=== PATIENT | female | born 1980 | race American Indian/Alaskan Native ===

== ENCOUNTER 2016-08-22 08:10 | Emergency (ER) | payer SELFPAY ==
[2016-08-22] MEDS ORDERED: NORCO 5/325 PO ONE (10:10)
[2016-08-22] MEDS ORDERED: TORADOL IM ONE (10:10)
--- NOTE | 2016-08-22 11:03 | XRay Report ---
Lumbar spine 3 views: History: Fall. Findings: Normal height of vertebral bodies and intervertebral disc. Normal articular surfaces. No fracture. No paravertebral mass. Impression: No bony or articular abnormality lumbar spine.
--- NOTE | 2016-08-22 11:04 | XRay Report ---
Thoracic spine 3 views: History: Fall, pain. Findings: Normal height of vertebral bodies. Minimal decrease in height of intervertebral disc bases. Sclerotic articular surface with osteophyte suggestive of degenerative changes. No fracture. No paravertebral mass. Impression: Degenerative dorsal spine.
[2016-08-22 11:43] VITALS: BP 149/86
--- NOTE | 2016-08-22 11:50 | Emergency Department Report ---
Entered by DANAY GIFFORD, acting as scribe for KIT CLAY PA. ED Fall HPI - General Chief Complaint: Fall Stated Complaint: LWR MIDDLE BACK PAIN Source: patient Mode of arrival: Ambulatory - History of Present Illness Initial Comments: 36 year old female presents to the ED for evaluation of mid and low back pain secondary to fall last night between 19:00 and 20:00. She reports she slipped and fell after losing her balance; states she did not hit her head or experience LOC. She reports feeling dizzy prior to fall but denies dizziness in the ED. Patient describes her back pain as "aching" and "throbbing" and rates her discomfort as a 9/10. She denies previous similar episodes, recent illness, numbness or tingling to extremities, and bowel or urinary incontinence. -: Last night Time: 19:00 Fall From: standing When Fall Occurred: other (greater than 12 horus [employer]) Fall Witnessed: yes, by bystander Place Fall Occurred: work ([employer]) Loss of Consciousness: none Prolonged Down Time?: no Symptoms Prior to Fall: lightheadedness, dizziness Location: back (mid and low back) Severity scale (0 -10): 9 Quality: aching, other (throbbing) Context: tripped/slipped Associated Symptoms: denies: denies (bowel or bladder incontinence, hitting head , LOC), headache, neck pain, numbness, weakness, chest paint, shortness of breath, abdominal pain, unable to walk, lightheaded - Related Data Home Medications Medication Instructions Recorded Confirmed Last Taken metFORMIN [Glucophage] 500 mg PO BID 08/28/15 02/13/16 Unknown Previous Rx's Medication Instructions Recorded Last Taken Type Hydroxyzine HCl 1 tab PO TID #60 tablet 02/13/16 Unknown Rx Lisinopril [Zestril TAB] 20 mg PO QDAY #30 tablet 02/13/16 Unknown Rx oxyCODONE /ACETAMINOPHEN [Percocet 1 tab PO Q6HR PRN #14 tablet 02/13/16 Unknown Rx 5/325 mg] Naproxen [Naprosyn] 500 mg PO BID #30 tablet 08/22/16 Unknown Rx methOCARBAMOL [Robaxin TAB] 500 mg PO BID #20 tab 08/22/16 Unknown Rx Allergies Allergy/AdvReac Type Severity Reaction Status Date / Time tramadol Allergy Vomiting Verified 08/22/16 08:28 ED Review of Systems Comment: All other systems reviewed and negative Respiratory: denies: shortness of breath Cardiovascular: denies: chest pain Gastrointestinal: denies: nausea, vomiting Musculoskeletal: back pain (mid and low back pain) Neurological: denies: weakness, numbness, paresthesias, abnormal gait, other ( LOC) ED Past Medical Hx - Past Medical History Hx Hypertension: Yes Hx Congestive Heart Failure: No Hx Diabetes: Yes Hx Asthma: No (bronchitis) Hx COPD: No Additional medical history: anemia, high chol. MORBID OBESITY - Surgical History Past Surgical History?: No - Social History Smoking Status: Current Every Day Smoker Substance Use Type: Alcohol - Medications Home Medications: Home Medications Medication Instructions Recorded Confirmed Last Taken Type metFORMIN [Glucophage] 500 mg PO BID 08/28/15 02/13/16 Unknown History Hydroxyzine HCl 1 tab PO TID #60 tablet 02/13/16 Unknown Rx Lisinopril [Zestril TAB] 20 mg PO QDAY #30 tablet 02/13/16 Unknown Rx oxyCODONE /ACETAMINOPHEN [Percocet 1 tab PO Q6HR PRN #14 tablet 02/13/16 Unknown Rx 5/325 mg] Naproxen [Naprosyn] 500 mg PO BID #30 tablet 08/22/16 Unknown Rx methOCARBAMOL [Robaxin TAB] 500 mg PO BID #20 tab 08/22/16 Unknown Rx ED Physical Exam - General Limitations: No Limitations General appearance: other (The patient is well-developed and well-nourished. Patient is in NAD. ) - Head Head exam: Present: atraumatic, normocephalic - Eye Eye exam: Present: PERRL, EOMI - Neck Neck exam: Present: full ROM (supple). Absent: tenderness (vertebral or paraspinal), lymphadenopathy - Respiratory Respiratory exam: Present: normal lung sounds bilaterally. Absent: respiratory distress - Cardiovascular Cardiovascular Exam: Present: regular rate, normal rhythm, normal heart sounds. Absent: systolic murmur, diastolic murmur, rubs, gallop - Back Exam Back exam: Present: paraspinal tenderness (thoracic spine and lumbar spine), vertebral tenderness (thoracic spine and lumbar spine) - Expanded Back Exam Expanded Back exam: Positive Straight Leg Raise: Right, Negative Straight Leg Raising: Left - Neurological Exam Neurological exam: Present: alert, oriented X3, CN II-XII intact, normal gait, other (Symmetrical strength and sensation. GCS score of 15.) - Psychiatric Psychiatric exam: Present: normal affect, normal mood ED Course Vital Signs 08/22/16 08/22/16 08:22 10:40 Temperature 97.5 F L Pulse Rate 96 H Respiratory 19 22 Rate Blood Pressure 181/115 O2 Sat by Pulse 96 Oximetry ED Medical Decision Making - Radiology Data Radiology results: report reviewed, image reviewed Thoracic spine 3 views: History: Fall, pain. Findings: Normal height of vertebral bodies. Minimal decrease in height of intervertebral disc bases. Sclerotic articular surface with osteophyte suggestive of degenerative changes. No fracture. No paravertebral mass. Impression: Degenerative dorsal spine. Lumbar spine 3 views: History: Fall. Findings: Normal height of vertebral bodies and intervertebral disc. Normal articular surfaces. No fracture. No paravertebral mass. Impression: No bony or articular abnormality lumbar spine. - Medical Decision Making 36 year old female presents to the ED for evaluation of mid and low back pain secondary to fall last night. X-ray of thoracic and lumbar spine reveal no acute fractures or dislocations. The patient will be provided with a referral for orthopedic. Patient was given Oceana and Toradol and reported symptomatic relief. Patient is in no acute distress at this time. She will be discharged home and is encouraged to follow up with a primary care provider. She will be sent home on Robaxin and naproxen and is encouraged to return to the emergency room for any worsening symptoms. ED Disposition Clinical Impression: Fall Qualifiers: Encounter type: initial encounter Qualified Code(s): W19.XXXA - Unspecified fall, initial encounter Back pain Qualifiers: Back pain location: thoracic back pain Chronicity: acute Back pain laterality: bilateral Qualified Code(s): M54.6 - Pain in thoracic spine Low back pain Qualifiers: Chronicity: acute Back pain laterality: bilateral Sciatica presence: without sciatica Qualified Code(s): M54.5 - Low back pain Disposition: DISCHARGED TO HOME OR SELFCARE Is pt being admited?: No Does the pt Need Aspirin: No Condition: Stable Instructions: Back Pain (ED) Additional Instructions: Follow-up with primary care provider. Return to the emergency department if symptoms worsen. Prescriptions: methOCARBAMOL [Robaxin TAB] 500 mg PO BID #20 tab Naproxen [Naprosyn] 500 mg PO BID #30 tablet Referrals: PRIMARY MD JAMISON [Primary Care Provider] - 3-5 Days MARILOU HOOD MD [Staff Physician] - 3-5 Days [facility] [Outside] - 3-5 Days Forms: Work/School Release Form(ED), Accompanied Note Time of Disposition: 11:46 This documentation as recorded by the BALTA evans REBEKAH,accurately reflects the service I personally performed and the decisions made by OBED earl NATASHA, PA.
== END 2016-08-22 11:56 | disposition home or self-care (01) ==
LOC: ED 08:10
DX: M54.6 Pain in thoracic spine (principal); M54.5 Low back pain; W01.0XXA Fall on same level from slipping, tripping and stumbling without subsequent striking against object, initial encounter; Y93.9 Activity, unspecified; Y92.9 Unspecified place or not applicable; Y99.9 Unspecified external cause status
CPT/HCPCS: 72070; 72100; 96372; 99283; J1885

== ENCOUNTER 2018-01-17 04:32 | Emergency (ER) | payer OTHER ==
[2018-01-17] MEDS ORDERED: XYLOCAINE 2% INFILTRATI ONE (09:34)
--- NOTE | 2018-01-17 09:35 | Emergency Department Report ---
ED Female HPI - General Chief complaint: Urogenital-Female Stated complaint: VAGINAL CYST Time Seen by Provider: 01/17/18 09:05 Source: patient Mode of arrival: Ambulatory Limitations: No Limitations, Language Barrier - History of Present Illness Initial comments: Services a 37-year-old -[place]is[place] female who presents with abscess to the vaginal region for 3 days. Past medical history of abscesses in multiple locations, HTN, and Prediabetes. Patient reports pain as 10 out of 10 on pain scale and worse while sitting. Pain is sharp and constant. Pain increased last night and caused difficulty sitting. She is currently taking NSAID's with no improvement of symptoms. She have not been able to follow up with [employer] due to insurance issues at employment. MD Complaint: other (abscess to vagina) Onset/Timin -: days(s) Location: labia (left side) Radiation: non-radiating Severity: severe Severity scale (0 -10): 10 Quality: sharp, aching Consistency: constant Improves with: none Worsens with: movement, other (sitting) Are you Now?: No Associated Symptoms: denies other symptoms - Related Data Sexually active: Yes Home Medications Medication Instructions Recorded Confirmed Last Taken metFORMIN [Glucophage] 500 mg PO BID 08/28/15 02/13/16 Unknown Previous Rx's Medication Instructions Recorded Last Taken Type Hydroxyzine HCl 1 tab PO TID #60 tablet 02/13/16 Unknown Rx Lisinopril [Zestril TAB] 20 mg PO QDAY #30 tablet 02/13/16 Unknown Rx oxyCODONE /ACETAMINOPHEN [Percocet 1 tab PO Q6HR PRN #14 tablet 02/13/16 Unknown Rx 5/325 mg] Naproxen [Naprosyn] 500 mg PO BID #30 tablet 08/22/16 Unknown Rx methOCARBAMOL [Robaxin TAB] 500 mg PO BID #20 tab 08/22/16 Unknown Rx Cephalexin [Keflex] 500 mg PO BID #14 capsule 04/04/17 Unknown Rx Naproxen 500 mg PO BID PRN #30 tablet 04/04/17 Unknown Rx Dicyclomine [Bentyl] 10 mg PO QID PRN #20 capsule 04/11/17 Unknown Rx Famotidine [Pepcid] 20 mg PO QDAY #30 tablet 04/11/17 Unknown Rx Ondansetron [Zofran Odt] 4 mg PO Q8HR PRN #20 tab.rapdis 04/11/17 Unknown Rx Sucralfate [Carafate] 1 gm PO Q6HR #120 tablet 04/11/17 Unknown Rx Allergies Allergy/AdvReac Type Severity Reaction Status Date / Time tramadol Allergy Vomiting Verified 08/22/16 08:28 ED Review of Systems ROS: Stated complaint: VAGINAL CYST Other details as noted in HPI Constitutional: denies: chills, fever Respiratory: denies: cough, shortness of breath, wheezing Cardiovascular: denies: chest pain, palpitations Gastrointestinal: denies: abdominal pain, nausea, diarrhea Genitourinary: denies: urgency, dysuria, discharge Skin: lesions (abscess to left labia). denies: rash Neurological: denies: headache, weakness, paresthesias Psychiatric: denies: anxiety, depression ED Past Medical Hx - Past Medical History Previous Medical History?: Yes Hx Hypertension: Yes Hx Congestive Heart Failure: No Hx Diabetes: Yes (borderline) Hx Asthma: (bronchitis) Hx COPD: No Additional medical history: anemia, high chol. MORBID OBESITY - Surgical History Past Surgical History?: No - Social History Smoking Status: Current Every Day Smoker Substance Use Type: Alcohol, Marijuana - Medications Home Medications: Home Medications Medication Instructions Recorded Confirmed Last Taken Type metFORMIN [Glucophage] 500 mg PO BID 08/28/15 02/13/16 Unknown History Hydroxyzine HCl 1 tab PO TID #60 tablet 02/13/16 Unknown Rx Lisinopril [Zestril TAB] 20 mg PO QDAY #30 tablet 02/13/16 Unknown Rx oxyCODONE /ACETAMINOPHEN [Percocet 1 tab PO Q6HR PRN #14 tablet 02/13/16 Unknown Rx 5/325 mg] Naproxen [Naprosyn] 500 mg PO BID #30 tablet 08/22/16 Unknown Rx methOCARBAMOL [Robaxin TAB] 500 mg PO BID #20 tab 08/22/16 Unknown Rx Cephalexin [Keflex] 500 mg PO BID #14 capsule 04/04/17 Unknown Rx Naproxen 500 mg PO BID PRN #30 tablet 04/04/17 Unknown Rx Dicyclomine [Bentyl] 10 mg PO QID PRN #20 capsule 04/11/17 Unknown Rx Famotidine [Pepcid] 20 mg PO QDAY #30 tablet 04/11/17 Unknown Rx Ondansetron [Zofran Odt] 4 mg PO Q8HR PRN #20 tab.rapdis 04/11/17 Unknown Rx Sucralfate [Carafate] 1 gm PO Q6HR #120 tablet 04/11/17 Unknown Rx ED Physical Exam - General Limitations: No Limitations, Language Barrier General appearance: alert, in no apparent distress, obese (mobidly obese) - Respiratory Respiratory exam: Present: normal lung sounds bilaterally. Absent: respiratory distress - Cardiovascular Cardiovascular Exam: Present: regular rate, normal rhythm. Absent: systolic murmur, diastolic murmur, rubs, gallop - GI/Abdominal GI/Abdominal exam: Present: soft, normal bowel sounds - External exam: Present: swelling, lesions (2 cm fluctuance nodule to left labia majora, no active bleeding,). Absent: erythema, lacerations, ecchymosis, bleeding ED Course Vital Signs 01/17/18 04:43 Temperature 99.1 F Pulse Rate 103 H Respiratory 15 Rate Blood Pressure 186/121 O2 Sat by Pulse 99 Oximetry ED Medical Decision Making - Medical Decision Making This is a 37 y.o. female that presents with a painful abscess to left labia majora. History of prior abscess, HTN, and prediabetes. Patient is stable and examined by me. Physical assessment of 2 cm fluctuance nodule to left labia majora. No acute signs of distress noted. Blood pressure elevated on arrival. I &D refer to note. Discussed plan to start bactrim DS and tylenol with codeine with patient. Educated patient on follow up plan to have packing removed and wound reassessed in 2-3 days. Patient agrees to ED plan of care. Discharged home and follow up with PCP in 2-3 days. Critical care attestation.: If time is entered above; I have spent that time in minutes in the direct care of this critically ill patient, excluding procedure time. ED Disposition Condition: Stable Referrals: PRIMARY CARE, [Primary Care Provider] - 3-5 Days
--- NOTE | 2018-01-17 11:37 | Emergency Department Report ---
Abscess Boil HPI - HPI Chief Complaint: Urogenital-Female Stated Complaint: VAGINAL CYST Time Seen by Provider: 01/17/18 09:05 Duration: 3 Days Location: Perianal Severity: Moderate History: Yes Previous History, No Fever, No Pain, No Purulent Drainage, No Numbness, No Foreign Body, No Insect Bite HPI: Services a 37-year-old -[place] female who presents with abscess to the vaginal region for 3 days. Past medical history of abscesses in multiple locations, HTN, and Prediabetes. Patient reports pain as 10 out of 10 on pain scale and worse while sitting. Pain is sharp and constant. Pain increased last night and caused difficulty sitting. She is currently taking NSAID's with no improvement of symptoms. She have not been able to follow up with [employer] due to insurance issues at employment. Home Medications: Home Medications Medication Instructions Recorded Confirmed Last Taken metFORMIN [Glucophage] 500 mg PO BID 08/28/15 02/13/16 Unknown Previous Rx's Medication Instructions Recorded Last Taken Type Hydroxyzine HCl 1 tab PO TID #60 tablet 02/13/16 Unknown Rx Lisinopril [Zestril TAB] 20 mg PO QDAY #30 tablet 02/13/16 Unknown Rx oxyCODONE /ACETAMINOPHEN [Percocet 1 tab PO Q6HR PRN #14 tablet 02/13/16 Unknown Rx 5/325 mg] Naproxen [Naprosyn] 500 mg PO BID #30 tablet 08/22/16 Unknown Rx methOCARBAMOL [Robaxin TAB] 500 mg PO BID #20 tab 08/22/16 Unknown Rx Cephalexin [Keflex] 500 mg PO BID #14 capsule 04/04/17 Unknown Rx Naproxen 500 mg PO BID PRN #30 tablet 04/04/17 Unknown Rx Dicyclomine [Bentyl] 10 mg PO QID PRN #20 capsule 04/11/17 Unknown Rx Famotidine [Pepcid] 20 mg PO QDAY #30 tablet 04/11/17 Unknown Rx Ondansetron [Zofran Odt] 4 mg PO Q8HR PRN #20 tab.rapdis 04/11/17 Unknown Rx Sucralfate [Carafate] 1 gm PO Q6HR #120 tablet 04/11/17 Unknown Rx Ibuprofen [Motrin 800 MG tab] 800 mg PO Q8HR PRN #20 tablet 01/17/18 Unknown Rx Lisinopril [Zestril] 20 mg PO DAILY #30 tablet 01/17/18 Unknown Rx Sulfamethoxazole/Trimethoprim 1 each PO BID #20 tablet 01/17/18 Unknown Rx [Bactrim DS TAB] Allergies/Adverse Reactions: Allergies Allergy/AdvReac Type Severity Reaction Status Date / Time tramadol Allergy Vomiting Verified 08/22/16 08:28 ED Review of Systems ROS: Stated complaint: VAGINAL CYST Other details as noted in HPI Constitutional: denies: chills, fever Respiratory: denies: cough, shortness of breath, wheezing Cardiovascular: denies: chest pain, palpitations Gastrointestinal: denies: abdominal pain, nausea, diarrhea Genitourinary: denies: urgency, dysuria, discharge Skin: lesions (abscess to left labia). denies: rash Neurological: denies: headache, weakness, paresthesias Psychiatric: denies: anxiety, depression ED Past Medical Hx - Past Medical History Previous Medical History?: Yes Hx Hypertension: Yes Hx Congestive Heart Failure: No Hx Diabetes: Yes (borderline) Hx Asthma: (bronchitis) Hx COPD: No Additional medical history: anemia, high chol. MORBID OBESITY - Surgical History Past Surgical History?: No - Social History Smoking Status: Current Every Day Smoker Substance Use Type: Alcohol, Marijuana - Medications Home Medications: Home Medications Medication Instructions Recorded Confirmed Last Taken Type metFORMIN [Glucophage] 500 mg PO BID 08/28/15 02/13/16 Unknown History Hydroxyzine HCl 1 tab PO TID #60 tablet 02/13/16 Unknown Rx Lisinopril [Zestril TAB] 20 mg PO QDAY #30 tablet 02/13/16 Unknown Rx oxyCODONE /ACETAMINOPHEN [Percocet 1 tab PO Q6HR PRN #14 tablet 02/13/16 Unknown Rx 5/325 mg] Naproxen [Naprosyn] 500 mg PO BID #30 tablet 08/22/16 Unknown Rx methOCARBAMOL [Robaxin TAB] 500 mg PO BID #20 tab 08/22/16 Unknown Rx Cephalexin [Keflex] 500 mg PO BID #14 capsule 04/04/17 Unknown Rx Naproxen 500 mg PO BID PRN #30 tablet 04/04/17 Unknown Rx Dicyclomine [Bentyl] 10 mg PO QID PRN #20 capsule 04/11/17 Unknown Rx Famotidine [Pepcid] 20 mg PO QDAY #30 tablet 04/11/17 Unknown Rx Ondansetron [Zofran Odt] 4 mg PO Q8HR PRN #20 tab.rapdis 04/11/17 Unknown Rx Sucralfate [Carafate] 1 gm PO Q6HR #120 tablet 04/11/17 Unknown Rx Ibuprofen [Motrin 800 MG tab] 800 mg PO Q8HR PRN #20 tablet 01/17/18 Unknown Rx Lisinopril [Zestril] 20 mg PO DAILY #30 tablet 01/17/18 Unknown Rx Sulfamethoxazole/Trimethoprim 1 each PO BID #20 tablet 01/17/18 Unknown Rx [Bactrim DS TAB] ED Abscess Boil Physical Exam - Exam General: Vital signs noted. No distress. Alert and acting appropriately. Front/Back of Body, Lg (Color): 1 - 2 cm fluctance nodule to left labia majora, tender to palpation, no active bleeding or surrounding cellulitis Size: 2 cm Exam: Yes Tenderness, Yes Fluctuance, Yes Normal Neurologic Exam, Yes Normal Circulation, No Surrounding Cellulites/Erythema, No Lymphangitis, No Crepitation , No Heart Murmur I & D Note - I & D Note I & D Note: The area was prepared and draped in the usual, sterile manner. The site was anesthetized with 2% lidocaine without epinephrine. A linear incision along the local skin lines was made and the purulent material expressed. The abcess was explored thoroughly and sequestered pockets were opened. Bleeding was minimal. Packing: Patient was unable to tolerate packing. Followup: Standard post-procedure care was explained and return precautions are given. ED Course Vital Signs 01/17/18 04:43 Temperature 99.1 F Pulse Rate 103 H Respiratory 15 Rate Blood Pressure 186/121 O2 Sat by Pulse 99 Oximetry Critical care attestation.: If time is entered above; I have spent that time in minutes in the direct care of this critically ill patient, excluding procedure time. ED Medical Decision Making - Medical Decision Making This is a 37 y.o. female that presents with a painful abscess to left labia majora. History of prior abscess, HTN, and prediabetes. Patient is stable and examined by me. Physical assessment of 2 cm fluctuance nodule to left labia majora. No acute signs of distress noted. Blood pressure elevated on arrival. Given clonidine 0.1 mg po once. Patient off blood pressure medication for months since insurance collapsed. Will restart lisinopril 20 mg po daily. Blood pressure is trending down. I&D refer to note. Discussed plan to start bactrim DS and ibuprofen with patient. Educated patient on follow up plan to have wound reassessed in 2-3 days. Patient agrees to ED plan of care. Discharged home and follow up with PCP in 2-3 days. ED Disposition Clinical Impression: Abscess of left genital labia, Asymptomatic hypertension Hypertension Qualifiers: Hypertension type: essential hypertension Qualified Code(s): I10 - Essential ( primary) hypertension Disposition: TO HOME OR SELFCARE Is pt being admited?: No Does the pt Need Aspirin: No Condition: Stable Instructions: Abscess (ED), Hypertension (ED), DASH Eating Plan (ED) Additional Instructions: Keep packing in place for 2-3 days. Return to ER or f/u with PCP to have packing removed and wound reassessed. Complete full round of bactrim DS antibiotic as prescribed. Follow-up with [facility] clinic for management of hypertension. Follow up with PCP or ER in 2-3 days. Return to ER if foul smelling discharge, swelling, or severe pain to wound. Prescriptions: Ibuprofen [Motrin 800 MG tab] 800 mg PO Q8HR PRN #20 tablet PRN Reason: Pain , Severe (7-10) Lisinopril [Zestril] 20 mg PO DAILY #30 tablet Sulfamethoxazole/Trimethoprim [Bactrim DS TAB] 1 each PO BID #20 tablet Referrals: [facility] [Outside] - 3-5 Days [facility] [Outside] - 3-5 Days [facility] [Outside] - 3-5 Days Forms: Work/School Release Form(ED) Time of Disposition: 11:39 Print Language: CITIZ[place] OF [place]
[2018-01-17] MEDS ORDERED: CATAPRES PO ONE (11:41)
[2018-01-17] MEDS ORDERED: NORCO 5/325 PO ONE (12:17)
[2018-01-17 12:52] VITALS: BP 154/102
== END 2018-01-17 13:14 | disposition home or self-care (01) ==
LOC: ED 04:32
DX: N76.4 Abscess of vulva (principal); I10 Essential (primary) hypertension; E11.9 Type 2 diabetes mellitus without complications; D64.9 Anemia, unspecified; E66.01 Morbid (severe) obesity due to excess calories; F17.200 Nicotine dependence, unspecified, uncomplicated; F12.10 Cannabis abuse, uncomplicated; E78.00 Pure hypercholesterolemia, unspecified; Z79.84 Long term (current) use of oral hypoglycemic drugs; Z88.6 Allergy status to analgesic agent
CPT/HCPCS: 99283

== ENCOUNTER 2021-10-04 01:56 | Emergency (ER) | payer SELFPAY ==
[2021-10-04 02:08] VITALS: BP 186/105
--- NOTE | 2021-10-04 08:40 | Emergency Department Report ---
ED Female HPI - General Chief complaint: Urogenital-Female Stated complaint: VAGINAL PAIN Time Seen by Provider: 10/04/21 08:17 Source: patient Mode of arrival: Ambulatory Limitations: No Limitations - History of Present Illness Initial comments: 41-year-old -[place] female with a past medical history of diabetes and hypertension and genital warts presents to the ER with complaints of vaginal pain. Patient states that she has chronic pain to the vaginal area secondary to genital warts but in the past 2 weeks the pain got worse. She states she currently does not have an [facility] but she did make an appointment with [facility] but is not until November 2021. Patient reports associated vaginal swelling and dysuria. She denies any discharge. She denies any abnormal bleeding. She states that the last time she had sexual intercourse was about 4 years ago. She states that the last time she had treatment for genital warts was in February 2021. She remembers one of the medications being hydroxyzine but she cannot recall the name of the other medication. MD Complaint: other (vaginal pain) -: week(s) (2) - Related Data Sexually active: No (patient states she has not had any sexual intercourse in about 4 yrs) Home Medications Medication Instructions Recorded Confirmed Last Taken metFORMIN [Glucophage] 500 mg PO BID 08/28/15 02/13/16 Unknown Previous Rx's Medication Instructions Recorded Last Taken Type lisinopriL [Zestril TAB] 20 mg PO QDAY #30 tablet 02/13/16 Unknown Rx Clotrimazole/Betamethasone Dip 1 applic TP BID 20 Days #1 bottle 10/04/21 Unknown Rx [Clotrimazole-Betamethasone Lotion] Hydroxyzine HCl [hydrOXYzine] 50 mg PO Q4HR PRN #25 tab 10/04/21 Unknown Rx Ibuprofen [Motrin] 600 mg PO Q8H PRN #30 tablet 10/04/21 Unknown Rx metroNIDAZOLE [Flagyl] 500 mg PO Q12HR #14 tab 10/04/21 Unknown Rx Allergies Allergy/AdvReac Type Severity Reaction Status Date / Time tramadol Allergy Vomiting Verified 10/04/21 02:06 ED Review of Systems ROS: Stated complaint: VAGINAL PAIN Other details as noted in HPI Comment: All other systems reviewed and negative Constitutional: denies: chills, fever Respiratory: denies: cough, shortness of breath, wheezing Cardiovascular: denies: chest pain, palpitations Gastrointestinal: denies: abdominal pain, nausea, vomiting, diarrhea, constipation, hematemesis, hematochezia Genitourinary: dysuria, other (+ vaginal pain and swelling). denies: urgency, frequency, hematuria, discharge, dyspareunia Musculoskeletal: denies: back pain, joint swelling, arthralgia Skin: rash Neurological: denies: headache, weakness, paresthesias Psychiatric: denies: anxiety, depression, auditory hallucinations, visual fernando lucinations, suicidal thoughts Hematological/Lymphatic: denies: easy bleeding, easy bruising ED Past Medical Hx - Past Medical History Previous Medical History?: Yes Hx Hypertension: Yes Hx Congestive Heart Failure: No Hx Diabetes: Yes (borderline) Hx Asthma: (bronchitis) Hx COPD: No Additional medical history: anemia, high chol. MORBID OBESITY, genital warts, swollen knots - Surgical History Past Surgical History?: No - Social History Smoking Status: Current Every Day Smoker Substance Use Type: Alcohol - Medications Home Medications: Home Medications Medication Instructions Recorded Confirmed Last Taken Type metFORMIN [Glucophage] 500 mg PO BID 08/28/15 02/13/16 Unknown History lisinopriL [Zestril TAB] 20 mg PO QDAY #30 tablet 02/13/16 Unknown Rx Clotrimazole/Betamethasone Dip 1 applic TP BID 20 Days #1 bottle 10/04/21 Unknown Rx [Clotrimazole-Betamethasone Lotion] Hydroxyzine HCl [hydrOXYzine] 50 mg PO Q4HR PRN #25 tab 10/04/21 Unknown Rx Ibuprofen [Motrin] 600 mg PO Q8H PRN #30 tablet 10/04/21 Unknown Rx metroNIDAZOLE [Flagyl] 500 mg PO Q12HR #14 tab 10/04/21 Unknown Rx ED Physical Exam - General Limitations: No Limitations General appearance: alert, in no apparent distress, obese - Head Head exam: Present: atraumatic, normocephalic, normal inspection - Eye Eye exam: Present: normal appearance, PERRL, EOMI Pupils: Present: normal accommodation - Respiratory Respiratory exam: Absent: respiratory distress - Cardiovascular Cardiovascular Exam: Present: regular rate - GI/Abdominal GI/Abdominal exam: Present: soft. Absent: distended, tenderness, guarding, rebound - External exam: Present: lesions (small, multiple very superficial macular hypopigmented lesions scattered labia minor and majora with also excoriations. There is some swelling to labia. No apparent signs of seconday bacterial infection. ), other (Litigation Specialist present) Speculum exam: Present: other (speculum exam not done because of patient vaginal pain. She was not able to tolerate it. Blind swab done to obtain wet prep. ). Absent: vaginal bleeding - Neurological Exam Neurological exam: Present: alert, oriented X3, CN II-XII intact, normal gait - Psychiatric Psychiatric exam: Present: normal affect, normal mood - Skin Skin exam: Present: intact ED Course Vital Signs 10/04/21 02:06 Temperature 98.2 F Pulse Rate 104 H Respiratory 20 Rate Blood Pressure 186/105 O2 Sat by Pulse 99 Oximetry Critical care attestation.: If time is entered above; I have spent that time in minutes in the direct care of this critically ill patient, excluding procedure time. ED Disposition Clinical Impression: Genital warts, Bacterial vaginosis Disposition: HOME / SELF CARE / HOMELESS Is pt being admited?: No Does the pt Need Aspirin: No Condition: Stable Instructions: Bacterial Vaginosis (ED), Bacterial Vaginosis, Genital Warts, [id number] Prescriptions: Clotrimazole/Betamethasone Dip [Clotrimazole-Betamethasone Lotion] 1 applic TP BID 20 Days #1 bottle metroNIDAZOLE [Flagyl] 500 mg PO Q12HR #14 tab Hydroxyzine HCl [hydrOXYzine] 50 mg PO Q4HR PRN #25 tab PRN Reason: Itching Ibuprofen [Motrin] 600 mg PO Q8H PRN #30 tablet PRN Reason: Pain Referrals: JESSICA SEGOVIA MD [Primary Care Provider] - 3-5 Days [facility] [Provider Group] - 3-5 Days [facility] [Provider Group] - 3-5 Days Forms: STI Treatment and Prevention Time of Disposition: 09:31
[2021-10-04 09:02] LABS: Bilirubin,Urine NEG (Negative); Blood,Urine NEG (Negative); Color,Urine Yellow (Yellow); Urobilinogen,Urine < 2.0 mg/dL (<2.0)
[2021-10-04] MEDS ORDERED: LIDOCAINE VISCOUS 2% 15 ML ORAL LIQD TP STA (09:03)
[2021-10-04] MEDS ORDERED: IBUPROFEN 800 MG TAB PO ONE (09:03)
[2021-10-04 09:11] LABS: RBC,Urine < 1.0 /HPF (0.0-6.0); WBC,Urine < 1.0 /HPF (0.0-6.0)
[2021-10-04 09:12] LABS: HCG Qualitative,Urine Negative (Negative)
== END 2021-10-04 10:06 | disposition home or self-care (01) ==
LOC: ED 01:56
DX: B07.8 Other viral warts (principal); N76.0 Acute vaginitis; B96.89 Other specified bacterial agents as the cause of diseases classified elsewhere; I10 Essential (primary) hypertension; E11.9 Type 2 diabetes mellitus without complications; Z79.899 Other long term (current) drug therapy; Z91.09 Other allergy status, other than to drugs and biological substances; F17.200 Nicotine dependence, unspecified, uncomplicated
CPT/HCPCS: 81001; 81025; 87210; 99284